=== PATIENT | male | born 2000 | race Caucasian/White ===

== ENCOUNTER 2019-03-13 19:01 | Emergency (ER) | payer BC, OTHER ==
[2019-03-13] MEDS ORDERED: Ondansetron ODT TAB* 4 MG PO ONE (19:46)
--- NOTE | 2019-03-13 20:20 | ED ---
Head Injury - HPI Summary HPI Summary: 18-year-old male presents with head injury since yesterday. He states that he hit his head on the wall. He states he was diving when this occurred. He states that afterwards he had some alcohol. He woke up in the morning vomiting. He has not vomited multiple times throughout the day. He states he' s been having worsening headache. He states he thought that his pupils were abnormally constricting. He admits to some dizziness. He admits to some light sensitivity. Also admits to photophobia. Denies any neck pain. No chest pain or shortness breath. No other injury. Has a history of migraines but states that this headache feels different. He states his headache is throbbing in nature and located on the front of his head. Is currently a 2 out of 10. He states that his nausea has improved. He has history of concussion when he was 3. Does have family history of migraines. - History Of Current Complaint Chief Complaint: EDHeadInjury Stated Complaint: HIT HIS HEAD/THROWING UP PER PT Time Seen by Provider: 03/13/19 19:15 Pain Intensity: 3 - Allergies/Home Medications Allergies/Adverse Reactions: Allergies Allergy/AdvReac Type Severity Reaction Status Date / Time Tree Nuts Allergy Severe Anaphylatic Verified 03/13/19 19:06 Shock shellfish derived Allergy Anaphylatic Verified 03/13/19 19:50 Shock PMH/Surg Hx/FS Hx/Imm Hx Endocrine/Hematology History: Denies: Hx Diabetes Cardiovascular History: Denies: Hx Hypertension, Hx Pacemaker/ICD History: Denies: Hx Renal Disease Sensory History: Denies: Hx Hearing Aid Psychiatric History: Denies: Hx Panic Disorder Infectious Disease History: No Infectious Disease History: Reports: Traveled Outside the [place] in Last 30 Days - Family History Known Family History: Positive: Other - migraines - Social History Alcohol Use: Occasionally Substance Use Type: Reports: None Smoking Status (MU): Never Smoked Tobacco Review of Systems Negative: Fever Positive: Photophobia Negative: Chest Pain Negative: Shortness Of Breath Positive: Vomiting, Nausea Positive: Headache All Other Systems Reviewed And Are Negative: Yes Physical Exam Triage Information Reviewed: Yes Vital Signs On Initial Exam: Initial Vitals Temp Pulse Resp BP Pulse Ox 99 F 69 15 135/84 96 03/13/19 19:04 03/13/19 19:04 03/13/19 19:04 03/13/19 19:04 03/13/19 19:04 Vital Signs Reviewed: Yes Appearance: Positive: Well-Appearing Skin: Positive: Warm, Dry Head/Face: Positive: Normal Head/Face Inspection Eyes: Positive: Normal, EOMI, ALISSA, Conjunctiva Clear ENT: Positive: Normal ENT inspection, Pharynx normal, TMs normal Neck: Positive: Other: - nontender neck, full ROM neck Respiratory/Lung Sounds: Positive: Clear to Auscultation, Breath Sounds Present Cardiovascular: Positive: Normal, RRR Abdomen Description: Positive: Nontender, Soft Bowel Sounds: Positive: Present Musculoskeletal: Positive: Normal, Other - tenderness thoracic, good pulses, full ROM upper extremity Neurological: Positive: Sensory/Motor Intact, Alert, Oriented to Person Place, Time, CN Intact II-III Psychiatric: Positive: Normal - Linda Coma Scale Best Eye Response: 4 - Spontaneous Best Motor Response: 6 - Obeys Commands Best Verbal Response: 5 - Oriented Coma Scale Total: 15 Diagnostics - Vital Signs Vital Signs Temp Pulse Resp BP Pulse Ox 03/13/19 19:04 99 F 69 15 135/84 96 - Laboratory Lab Statement: Any lab studies that have been ordered have been reviewed, and results considered in the medical decision making process. - Radiology thoracic Radiology Interpretation Completed By: Radiologist Summary of Radiographic Findings: no fx - CT brain CT Interpretation Completed By: Radiologist Summary of CT Findings: IMPRESSION: 1. No acute intracranial findings. 2. Small amount of layering fluid in the maxillary sinuses bilaterally. Head Injury Course/Dx Course Of Treatment: 18-year-old male presents with head injury since yesterday. He states that he hit his head on the wall. He states he was diving when this occurred. He states that afterwards he had some alcohol. He woke up in the morning vomiting. He has not vomited multiple times throughout the day. He states he's been having worsening headache. He states he thought that his pupils were abnormally constricting. He admits to some dizziness. He admits to some light sensitivity. Also admits to photophobia. Denies any neck pain. No chest pain or shortness breath. No other injury. Has a history of migraines but states that this headache feels different. He states his headache is throbbing in nature and located on the front of his head. Is currently a 2 out of 10. He states that his nausea has improved. He has history of concussion when he was 3. Does have family history of migraines. On exam has a normal neuro exam. Some nystagmus noted. With head injury and vomiting and alcohol got CT. CT brain normal. thoracic xray normal. tolerated water in the ED. gave concussion precautions. told to follow up with primary. patient understand and agrees with plan. - Diagnoses Differential Diagnosis/HQI/PQRI: Concussion Without LOC, Contusion, Intracranial Bleed Provider Diagnoses: Thoracic back pain, Head injury Discharge - Sign-Out/Discharge Documenting (check all that apply): Patient Departure Patient Received Moderate/Deep Sedation with Procedure: No - Discharge Plan Condition: Good Disposition: HOME Prescriptions: Ondansetron ODT TAB* [Zofran 4 MG Odt TAB*] 4 mg PO Q6H PRN #20 tab.odt PRN Reason: Nausea Patient Education Materials: Concussion (ED) Forms: *Work Release Referrals: Rojas Zayas MD [Primary Care Provider] - Additional Instructions: Place ice on area as needed Take Tylenol or ibuprofen for headache every 6 hours take zofran every 6 hours as needed for nausea Modify activities as tolerated you can not participate in any physical activity until cleared by primary Follow up with primary within 5 days Return to ED if develop any new or worsening symptoms - Billing Disposition and Condition Condition: GOOD Disposition: Home
[2019-03-13 21:17] VITALS: BP 136/67
== END 2019-03-13 21:16 | disposition home or self-care (01) ==
LOC: ED 19:01
DX: S09.90XA Unspecified injury of head, initial encounter (principal); M54.6 Pain in thoracic spine; W16.832A Jumping or diving into other water striking wall causing other injury, initial encounter; Y92.9 Unspecified place or not applicable
CPT/HCPCS: 70450; 72070; 99282; A9270-GY